=== PATIENT | male | born 1995 | race Caucasian/White ===

== ENCOUNTER 2019-06-21 11:55 | Emergency (ER) | payer OTHER ==
[2019-06-21] MEDS ORDERED: Lactated Ringers 1,000 ML IV ONE (11:56)
[2019-06-21] MEDS ORDERED: Ondansetron 4 MG/2 ML SDV ONE (12:00)
[2019-06-21] MEDS ORDERED: Morphine 2 MG/ML Syringe ONE ×3 (12:00→12:09)
[2019-06-21] MEDS ORDERED: Iopamidol 612 MG/ML 100 ML Bottle IVPUSH ONE (12:09)
[2019-06-21 12:35] LABS: CHLORIDE,CL 105 mmol/L (98-107); SODIUM,NA 137 mmol/L (136-145)
--- NOTE | 2019-06-21 13:02 | EDM.PDOC ---
ED HPI GENERAL MEDICAL PROBLEM - General Chief Complaint: Back Pain or Injury Stated Complaint: Trauma Code Time Seen by Provider: 06/21/19 11:57 Source of Information: Reports: Patient, EMS History Limitations: Reports: No Limitations - History of Present Illness INITIAL COMMENTS - FREE TEXT/NARRATIVE: Pt presents via EMS after horse accident Pt horse fell and rolled over him Pt complains of pain in left ribs, left pelvis and left forearm Unknown LOC No other previous injury or illness No meds or allergies Pt states pain is 8/10 Onset: Today, Sudden Location: Reports: Chest, Abdomen, Pelvis, Upper Extremity, Left Improves with: Reports: Immobilization Worsens with: Reports: Movement Context: Reports: Trauma - Related Data Allergies Allergy/AdvReac Type Severity Reaction Status Date / Time No Known Allergies Allergy Verified 06/21/19 12:50 Home Meds: Home Meds . [No Known Home Meds] 05/26/16 [History] Past Medical History - Past Health History Medical/Surgical History: Denies Medical/Surgical History Social & Family History - Tobacco Use Smoking Status *Q: Current Every Day Smoker Years of Tobacco use: 7 Packs/Tins Daily: 1 Second Hand Smoke Exposure: No - Caffeine Use Caffeine Use: Reports: Soda - Alcohol Use Days Per Week of Alcohol Use: 5 Number of Drinks Per Day: 2 Total Drinks Per Week: 10 Date of Last Drink: 06/20/19 - Recreational Drug Use Recreational Drug Use: No Review of Systems - Review of Systems Review Of Systems: See Below Eyes: Reports: No Symptoms Ears: Reports: No Symptoms Nose: Reports: No Symptoms Mouth/Throat: Reports: No Symptoms Respiratory: Reports: No Symptoms Cardiovascular: Reports: Chest Pain GI/Abdominal: Reports: Abdominal Pain Musculoskeletal: Reports: Arm Pain Neurological: Reports: No Symptoms Psychiatric: Reports: No Symptoms ED EXAM, GENERAL - Physical Exam Exam: See Below Exam Limited By: No Limitations General Appearance: Alert, WD/WN, Moderate Distress Eye Exam: Bilateral Eye: EOMI, PERRL Ears: Normal TMs Nose: Normal Inspection Throat/Mouth: Normal Oropharynx Head: Atraumatic Neck: Non-Tender Respiratory/Chest: Lungs Clear, Other (Left chest tender No deformity No ecchymosis) Cardiovascular: Normal Peripheral Pulses, Regular Rate, Rhythm GI/Abdominal: Other (Pelvis tender on left) (Male) Exam: Normal Inspection Back Exam: Normal Inspection Extremities: Arm Pain Neurological: Alert, Oriented, No Motor/Sensory Deficits, Other (GCS-15) Psychiatric: Normal Affect, Normal Mood Course - Orders/Labs/Meds Orders: Active Orders 24 hr Category Date Time Status Abdomen Pelvis w Cont [CT] Routine Exams 06/21/19 12:08 Ordered Cervical Spine wo Cont [CT] Routine Exams 06/21/19 12:07 Ordered Chest 1V Frontal [CR] Routine Exams 06/21/19 12:38 Taken Chest w Cont [CT] Routine Exams 06/21/19 12:08 Taken Forearm 2V Lt [CR] Stat Exams 06/21/19 12:31 Taken Head wo Cont [CT] Routine Exams 06/21/19 12:06 Taken Humerus Lt [CR] Stat Exams 06/21/19 12:31 Taken Pelvis 1V or 2V [CR] Routine Exams 06/21/19 12:39 Taken Labs: Laboratory Tests 06/21/19 06/21/19 Range/Units 11:59 11:59 WBC 8.3 (4.0-10.2) K/uL RBC 5.94 H (4.33-5.41) M/uL Hgb 17.5 H D (13.1-16.8) g/dL Hct 49.0 (39.0-49.0) % MCV 82.5 L (84.0-98.0) fL MCH 29.5 (28.2-33.3) pg MCHC 35.7 (31.7-36.0) g/dL RDW 13.0 (11.2-14.1) % Plt Count 308 (150-350) K/uL Neut % (Auto) 64.0 (45.0-80.0) % Lymph % (Auto) 26.2 (10.0-50.0) % [place] % (Auto) 8.8 (2.0-14.0) % Eos % (Auto) 0.6 (0.0-5.0) % Baso % (Auto) 0.4 (0.0-2.0) % Neut # (Auto) 5.28 (1.40-7.00) K/uL Lymph # (Auto) 2.16 (0.50-3.50) K/uL [place] # (Auto) 0.73 (0.00-1.00) K/uL Eos # (Auto) 0.05 (0.00-0.50) K/uL Baso # (Auto) 0.03 (0.00-0.20) K/uL Sodium 137 (136-145) mmol/L Potassium 4.9 (3.5-5.1) mmol/L Chloride 105 (98-107) mmol/L Carbon Dioxide 20.5 L (21.0-32.0) mmol/L BUN 11 (7-18) mg/dL Creatinine 1.02 (0.51-1.17) mg/dL Est Cr Clr Drug Dosing TNP Estimated GFR (MDRD) > 60 mL/min Glucose 98 (74-106) mg/dL Calcium 9.7 (8.5-10.1) mg/dL Total Bilirubin 1.4 H (0.2-1.0) mg/dL AST 46 H (15-37) U/L ALT 41 (12-78) U/L Alkaline Phosphatase 75 (46-116) IU/L Total Protein 8.4 H (6.4-8.2) g/dL Albumin 4.3 (3.4-5.0) g/dL Meds: Medications Discontinued Medications Generic Name Dose Route Start Last Admin Trade Name Freq PRN Reason Stop Dose Admin Iopamidol 100 ml 06/21/19 12:09 06/21/19 12:31 Isovue-300 (61%) IVPUSH 06/21/19 12:10 100 ml ONETIME ONE Administration Morphine Sulfate Confirm 06/21/19 12:09 Morphine Administered 06/21/19 12:10 Dose 2 mg .ROUTE .STK-MED ONE - Re-Assessments/Exams Free Text/Narrative Re-Assessment/Exam: 06/21/19 13:00 D/W Dr Mckeon [facility] ER Will accept in transfer Pt hemodynamically stable Plain CXR without pathology Plain pelvis with fracture on left [facility] life flight transfer Will get CT's while waiting on life flight CT's pending See lab Departure - Departure Time of Disposition: 13:00 Disposition: DC/Tfer to [facility] 02 Clinical Impression: Multiple trauma Pelvic fracture Qualifiers: Encounter type: initial encounter Pelvic bone location: unspecified part of pelvis Fracture type: closed Fracture alignment: displaced Qualified Code(s): S32.9XXA - Fracture of unspecified parts of lumbosacral spine and pelvis, initial encounter for closed fracture - Discharge Information *PRESCRIPTION DRUG MONITORING PROGRAM REVIEWED*: Not Applicable *COPY OF PRESCRIPTION DRUG MONITORING REPORT IN PATIENT DARRION: Not Applicable - My Orders Last 24 Hours: My Active Orders 06/21/19 12:06 Head wo Cont [CT] Routine 06/21/19 12:07 Cervical Spine wo Cont [CT] Routine 06/21/19 12:08 Abdomen Pelvis w Cont [CT] Routine Chest w Cont [CT] Routine 06/21/19 12:31 Forearm 2V Lt [CR] Stat Humerus Lt [CR] Stat 06/21/19 12:38 Chest 1V Frontal [CR] Routine 06/21/19 12:39 Pelvis 1V or 2V [CR] Routine - Assessment/Plan Last 24 Hours: My Active Orders 06/21/19 12:06 Head wo Cont [CT] Routine 06/21/19 12:07 Cervical Spine wo Cont [CT] Routine 06/21/19 12:08 Abdomen Pelvis w Cont [CT] Routine Chest w Cont [CT] Routine 06/21/19 12:31 Forearm 2V Lt [CR] Stat Humerus Lt [CR] Stat 06/21/19 12:38 Chest 1V Frontal [CR] Routine 06/21/19 12:39 Pelvis 1V or 2V [CR] Routine
[2019-06-21] MEDS ORDERED: Sodium Chloride 0.9% 1,000 ML IV SCH (13:15)
[2019-06-21 14:04] VITALS: BP 114/80; PULSE 83
== END 2019-06-21 13:30 ==
LOC: LL.ED 11:55
DX: S32.9XXA Fracture of unspecified parts of lumbosacral spine and pelvis, initial encounter for closed fracture (principal); M79.632 Pain in left forearm; F17.210 Nicotine dependence, cigarettes, uncomplicated; V80.010A Animal-rider injured by fall from or being thrown from horse in noncollision accident, initial encounter
CPT/HCPCS: 36415; 70450; 71045; 71260; 72125; 72170; 73060; 73090; 74177; 80053; 85025; 99285; J2270; J2405; J7030; J7120; Q9967

== ENCOUNTER 2021-10-15 18:55 | Emergency (ER) | payer OTHER ==
[2021-10-15] MEDS ORDERED: Sodium Chloride 0.9% 10 ML Syringe FLUSH PRN (19:03)
[2021-10-15] MEDS ORDERED: Sodium Chloride 0.9% 1,000 ML IV ONE (19:04)
[2021-10-15] MEDS ORDERED: Morphine 10 MG/ML Syringe IVPUSH ONE (19:05)
[2021-10-15] MEDS ORDERED: Morphine 10 MG/ML Syringe ONE (19:07)
[2021-10-15] MEDS ORDERED: Morphine 4 MG/ML Syringe IVPUSH ONE (20:07)
[2021-10-15] MEDS ORDERED: Lidocaine 4% 1 each Patch TOP PRN (20:08)
[2021-10-15] MEDS ORDERED: Lidocaine 4% 1 each Patch ONE (20:16)
[2021-10-15] MEDS ORDERED: Acetaminophen/HYDROcodone 325-5 MG Tab ONE (21:10)
[2021-10-16 00:05] VITALS: BP 137/80; PULSE 59
[2021-10-16] MEDS ORDERED: Morphine 15 MG Tab.ER PO SCH (08:00)
== END 2021-10-15 21:30 | disposition home or self-care (01) ==
LOC: LL.ED 18:55
DX: S42.192A Fracture of other part of scapula, left shoulder, initial encounter for closed fracture (principal); W55.12XA Struck by horse, initial encounter
CPT/HCPCS: 73010-LT; 96374; 96376; 99283; 99283-25; J2270; J7030